=== PATIENT | male | born 1960 | race African-American/Black ===

== ENCOUNTER → 2020-09-29 | Outpatient (CLI) | payer OTHER ==
[2014-07-08 20:30] VITALS: BP 169/94
--- NOTE | 2020-09-29 23:21 | RAD ---
XR HAND_RIGHT 2 VIEWS Clinical Indication: Reason: RIGHT HAND NERVE DAMAGE. DISABILITY DETERMINATION Comparison: None. Findings: AP and lateral views. There is no acute fracture. There is no dorsal soft tissue swelling. There is j oint space narrowing and marginal osteophytes of the second DIP joint. There is mild joint space narr owing with marginal osteophytes of the second and third MCP. There are small hooked lateral osteophyt es of the heads of the third, fourth, and fifth metacarpals. CPPD is in the differential, there is ho wever no chondrocalcinosis. Mild arthropathy first CMC. There is mild triscaphe joint space narrowing . No bone erosion. There is periarticular osteopenia. IMPRESSION: 1. No acute fracture. 2. Arthropathy as noted above. Electronically signed by: Jayson Wyman MD (09/29/2020 11:19 PM) ANA MARIA
== END ==
LOC: RAD 12:05
PROVIDERS: ATTEND Surgery
DX: M19.041 Primary osteoarthritis, right hand (principal); M85.841 Other specified disorders of bone density and structure, right hand; M25.741 Osteophyte, right hand; M11.241 Other chondrocalcinosis, right hand
CPT/HCPCS: 73120